=== PATIENT | male | born 1980 | race Hispanic/Latino ===

== ENCOUNTER 2019-05-11 20:38 | Emergency (ER) | payer OTHER ==
[2019-05-11 20:58] LABS: APPEARANCE,URINE CLEAR (CLEAR); BILIRUBIN,URINE SMALL (NEGATIVE); COLOR,URINE YELLOW (YELLOW); GLUCOSE, URINE (UA) NEGATIVE (NEGATIVE); KETONES,URINE 5 mg/dL (NEGATIVE); LEUKOCYTE ESTERASE ,URINE NEGATIVE (NEGATIVE); NITRATE,URINE NEGATIVE (NEGATIVE); OCCULT BLOOD,URINE NEGATIVE (NEGATIVE); PROTEIN,URINE TRACE mg/dL (NEGATIVE); UROBILINOGEN,URINE 0.2 mg/dL (0.2-1.0)
[2019-05-11 21:14] LABS: BACTERIA,URINE Few /HPF (None Seen); RBC,URINE 0-1 /HPF (0-1); WBC,URINE 0-1 /HPF (0-1)
[2019-05-11 21:15] LABS: MUCUS,URINE Moderate LPF (None Seen); SQUAMOUS EPITHELIAL CELL,UR Rare /HPF (0-2)
== END 2019-05-11 21:20 | disposition home or self-care (01) ==
LOC: EDH 20:38
DX: N20.0 Calculus of kidney (principal); Z87.442 Personal history of urinary calculi
CPT/HCPCS: 81001

== ENCOUNTER 2019-09-19 11:17 | Emergency (ER) | payer SELFPAY ==
[2019-09-19] MEDS ORDERED: KETOROLAC TROMETHAMINE 30MG/ML ONE (11:32)
[2019-09-19] MEDS ORDERED: SODIUM CHLORIDE 0.9% 1000ML 1,000 ML IV ONE (11:32)
[2019-09-19] MEDS ORDERED: ONDANSETRON HCL 4 MG/2 ML VIAL ONE (11:32)
[2019-09-19 11:37] LABS: APPEARANCE,URINE SL CLOUDY (CLEAR); BASOPHILS % (AUTO) 0.7 % (0.0-5.0); BILIRUBIN,URINE SMALL (NEGATIVE); COLOR,URINE YELLOW (YELLOW); EOSINOPHILS % (AUTO) 5.5 % (0.0-8.0); GLUCOSE, URINE (UA) NEGATIVE (NEGATIVE); HEMATOCRIT 48.7 % (42-54); KETONES,URINE NEGATIVE (NEGATIVE); LEUKOCYTE ESTERASE ,URINE NEGATIVE (NEGATIVE); LYMPHOCYTES % (AUTO) 21.4 % (21.0-51.0); MEAN CORPUSCULAR HEMOGLOBIN 30.9 pg (27.0-33.0); MEAN CORPUSCULAR HGB CONC 34.5 g/dL (32.0-36.0); MEAN CORPUSCULAR VOLUME 89.6 fL (79-99); NEUTROPHILS % (AUTO) 65.4 % (40.0-77.0); NITRATE,URINE NEGATIVE (NEGATIVE); OCCULT BLOOD,URINE LARGE (NEGATIVE); PH,URINE 5.5 (5.0-8.0); PLATELET COUNT (AUTO) 290 K/uL (130-400); PROTEIN,URINE 100 mg/dL (NEGATIVE); RED BLOOD CELL COUNT(AUTO) 5.44 MIL/uL (4.50-6.20); RED CELL DISTRIBUTION WIDTH 12.5 % (11.0-15.5); WHITE BLOOD COUNT (AUTO) 11.7 K/uL (4.8-10.8)
[2019-09-19 11:44] LABS: POTASSIUM 3.8 mmol/L (3.5-5.1)
[2019-09-19 11:46] LABS: INR 0.95 (0.85-1.15); PARTIAL THROMBOPLASTIN TIME 26.2 SEC (26.3-35.5)
[2019-09-19 11:48] LABS: BILIRUBIN,TOTAL 0.5 mg/dL (0.2-1.0); TOTAL PROTEIN, SERUM 7.9 g/dL (6.0-8.3)
[2019-09-19] MEDS ORDERED: TAMSULOSIN HCL 0.4 MG CAP.ER.24H ONE (11:48)
[2019-09-19 12:05] LABS: RBC,URINE 26-50 /HPF (0-1)
[2019-09-19 12:06] LABS: BACTERIA,URINE Few /HPF (None Seen); MUCUS,URINE Moderate LPF (None Seen); WBC,URINE 0-1 /HPF (0-1)
[2019-09-19] MEDS ORDERED: TRAMADOL HCL 50 MG TABLET ONE (13:18)
== END 2019-09-19 13:47 | disposition home or self-care (01) ==
LOC: EDH 11:17
DX: N13.2 Hydronephrosis with renal and ureteral calculous obstruction (principal); R03.0 Elevated blood-pressure reading, without diagnosis of hypertension; Z87.442 Personal history of urinary calculi; Z72.0 Tobacco use
CPT/HCPCS: 36415; 74176; 80053; 81001; 82150; 83690; 85025; 85610; 85730; 96374; 96375; 99285; J1885; J2405; J7030

== ENCOUNTER 2022-02-06 10:10 | Emergency (ER) | payer OTHER ==
[~2022-02-06] VITALS: Ht 180.3 cm; Wt 98.4 kg
[2022-02-06 10:35] LABS: HEMATOCRIT 46.4 % (42-54); LYMPHOCYTES % (AUTO) 30.6 % (21.0-51.0); MEAN CORPUSCULAR HGB CONC 34.1 g/dL (32.0-36.0); MONOCYTES % (AUTO) 8.9 % (3.0-13.0); NEUTROPHILS % (AUTO) 55.9 % (40.0-77.0); PLATELET COUNT (AUTO) 267 K/uL (130-400); RED CELL DISTRIBUTION WIDTH 11.8 % (11.0-15.5); WHITE BLOOD COUNT (AUTO) 10.2 K/uL (4.8-10.8)
[2022-02-06 10:42] LABS: CREATININE 0.9 mg/dL (0.5-1.5); POTASSIUM 3.8 mmol/L (3.5-5.1)
[2022-02-06 10:47] LABS: ALBUMIN 3.6 g/dL (3.5-5.0); BILIRUBIN,TOTAL 0.3 mg/dL (0.2-1.0); TOTAL PROTEIN, SERUM 6.7 g/dL (6.0-8.3)
[2022-02-06 11:08] LABS: AMPHET/METH SCREEN,URINE NEGATIVE (NEGATIVE); BARBITURATE SCREEN, URINE NEGATIVE (NEGATIVE); BENZODIAZEPINES SCREEN,URINE NEGATIVE (NEGATIVE); CANNABINOID SCREEN,URINE NEGATIVE (NEGATIVE); COCAINE SCREEN,URINE NEGATIVE (NEGATIVE); OPIATE SCREEN,URINE NEGATIVE (NEGATIVE); PHENCYCLIDINE SCREEN,URINE NEGATIVE (NEGATIVE)
[2022-02-06 11:15] LABS: APPEARANCE,URINE Clear (CLEAR); BILIRUBIN,URINE Negative (NEGATIVE); COLOR,URINE Yellow (YELLOW); GLUCOSE, URINE (UA) Negative (NEGATIVE); KETONES,URINE Negative (NEGATIVE); LEUKOCYTE ESTERASE ,URINE Negative (NEGATIVE); NITRATE,URINE Negative (NEGATIVE); OCCULT BLOOD,URINE Negative (NEGATIVE); PH,URINE 6.5 (5.0-8.0); PROTEIN,URINE Negative (NEGATIVE)
[2022-02-06 12:00] VITALS: BP 136/82
[2022-02-06] MEDS ORDERED: IBUPROFEN 600 MG TABLET PO ONE (12:30)
[2022-02-06] MEDS ORDERED: ACETAMINOPHEN 500 MG TABLET PO ONE (12:30)
[2022-02-06] MEDS ORDERED: IBUP-2070 PO (12:33)
[2022-02-06] MEDS ORDERED: IBUPROFEN 600 MG TABLET ONE (12:36)
[2022-02-06] MEDS ORDERED: ACETAMINOPHEN 500 MG TABLET ONE (12:36)
== END 2022-02-06 12:41 | disposition home or self-care (01) ==
LOC: EDH 10:10
DX: M94.0 Chondrocostal junction syndrome [Tietze] (principal); F17.200 Nicotine dependence, unspecified, uncomplicated
CPT/HCPCS: 36415; 71045; 80053; 80305; 81003; 84484; 85025; 93005

== ENCOUNTER 2025-08-21 04:52 | Emergency (ER) | payer SELFPAY ==
[~2025-08-21] VITALS: Ht 180.3 cm; Wt 113.4 kg
[~2025-08-21 04:52] MED LIST: IBUP-1492 PO
--- NOTE | 2025-08-21 04:58 | NUR ---
REPORT TO DR HEBERT
--- NOTE | 2025-08-21 05:45 | NUR ---
PT ON PHONE IN LOBBY, NO ACUTE DISTRESS NOTED. GOOD EVEN CHEST RISE AND FALL OBSERVED
[2025-08-21 06:14] VITALS: BP 136/109; PULSE 75; RESP 18; TEMP 98.8; O2SAT 99
--- NOTE | 2025-08-21 06:19 | ERN ---
General Chief Complaint: Headache Stated Complaint: HEADACHE Time Seen by MD: 05:00 History of Present Illness Initial Comments 44-year-old male no past medical history remarkable presents to emergency room with complaints of headache. 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 He also has family members coming in for vacation and wanted to make sure that he did not spread any illness to them. No fever no cough. Patient has had shortness of breath and body aches. However no vomiting or diarrhea. No chest pain or palpitations. Allergies: Coded Allergies: No Known Drug Allergies (Unverified Allergy, Unknown, 02/06/22) Home Meds Active Scripts Ibuprofen (Ibuprofen) 600 Mg Tablet, 600 MG PO Q6H PRN for PAIN, #30 TAB Prov:URBAN MATA MD 02/06/22 Past Medical History Past Medical History: No Pertinent History Past Surgical History: None Social History Social History: Smokers, Drugs, ETOH Musculoskeletal: (+) muscle stiffness Neuro: (+) headache Physical Exam General Appearance: (+) no apparent distress Orientation: (+) alert, (+) oriented x 3 Eye: bilateral eye normal inspection, bilateral eye PERRL, bilateral eye EOMI Ear, Nose, Throat: (+) hearing grossly normal, (+) normal ENT inspection, (+) moist mucous membraine Neck: (+) normal inspection Respiratory: (+) chest non-tender, (+) lungs clear, (+) well ventilated Heart: (+) regular; (-) murmur Gastrointestinal: (+) soft, (+) non-tender Neurologic/Psychiatric: (+) normal speech, (+) no motor defecits Results Laboratory and Microbiology Lab and Micro Result Laboratory Tests Test 08/21/25 06:10 SARS-CoV-2 Antigen (Rapid) PRESUMPTIVE NEGATIVE MDM 44-year-old here for evaluation of COVID. He is only asking for a COVID test at this time to have peace of mind. We will obtain COVID test at this time and discharged appropriately. Disposition pending results of COVID test. Case endorsed to Dr. Nathan at the end of my shift ED Course Orders Procedure Category Date Status Time Covid19 (Sars Antigen LAB 08/21/25 Complete Rapid) 05:32 Acetaminophen 325 Tab PHA 08/21/25 Complete (Tylenol 325mg Tab 06:30 Current Medications Medications (Trade) Dose Ordered Sig/Renee Route PRN Reason Start Time Stop Time Status Last Admin Dose Admin Acetaminophen (TYLenol 325MG TAB) 650 mg ONCE ONCE PO 08/21/25 06:30 08/21/25 06:31 DC 08/21/25 06:22 Vital Signs Date Time Temp Pulse Resp B/P (MAP) Pulse Ox O2 Delivery O2 Flow Rate FiO2 08/21/25 06:14 98.8 75 18 136/109 99 Room Air* 0 21 08/21/25 04:53 97.3 79 18 148/81 98 Room Air DX & DISP Disposition: Discharge Departure Impression: Primary Impression: URI (upper respiratory infection) Condition: Stable Referrals: SELF,REFERRAL (PCP) KADIE HEBERT MD Aug 21, 2025 06:19
== END 2025-08-21 07:01 | disposition home or self-care (01) ==
LOC: EDH 04:52
DX: J06.9 Acute upper respiratory infection, unspecified (principal); Z20.822 Contact with and (suspected) exposure to COVID-19; F17.200 Nicotine dependence, unspecified, uncomplicated
CPT/HCPCS: 87426; 99283